=== PATIENT | female | born 1990 | race Caucasian/White ===

== ENCOUNTER 2018-04-14 02:02 | Inpatient (IN) | payer OTHER ==
[2018-04-14] MEDS ORDERED: Nalbuphine* 10 MG/ML 1 ML VIAL IM ONE (02:20)
[2018-04-14] MEDS ORDERED: Promethazine INJ(RESTRICTED)* 25 MG/ML 1 ML VIAL IM ONE (02:20)
[2018-04-14 06:51] LABS: ABS Basophils 0.1 10^3/ul (0-0.2); ABS Eosinophils 0.2 10^3/ul (0-0.6); ABS Monocytes 1.1 10^3/ul (0-0.8); ABS Neutrophils 12.1 10^3/ul (1.5-7.7); ABS Nucleated RBC 0 10^3/ul; Eosinophil % 1.3 %; Hematocrit 33 % (35-47); Hemoglobin 10.9 g/dl (12.0-16.0); Lymphocyte % 12.8 %; Mean Corpuscular HGB Conc 33 g/dl (31-36); Mean Corpuscular Hemoglobin 31 pg (27-31); Mean Corpuscular Volume 92 fL (80-97); Nucleated Red Blood Cells % 0.1; Platelet Count 248 10^3/ul (150-450); Red Blood Count 3.55 10^6/ul (4.00-5.40); Red Cell Distribution Width 14 % (10.5-15); White Blood Count 15.4 10^3/ul (3.5-10.8)
--- NOTE | 2018-04-14 07:44 | HP ---
General Information - Reason for Visit SROM, early labor - General Information Maternal Age: 28 Grav: 3 Para: 1 SAB: 1 IEA: 0 Estimated Due Date: 05/01/18 Determined By: LMP Maternal Blood Type and Rh: B Positive - Results this Serology/RPR Result: Non-Reactive Rubella Result: Immune HBsAg Result: Negative HIV Result: Negative GBS Culture Result: Negative Past Medical History Delivery History: Hx Uncomplicated Vaginal Delivery Pertinent Past Medical History: See Records - hypothyroidism, heart murmur, migraines, depression/anxiety Pertinent Past Surgical History: See Records - tonsilectomy/ adenoidectomy Pertinent Family History: See Records - thyroid, DM, CVD, high chol, HTN, stroke - Antepartal Records Antepartal Records: Reviewed, Complicated by: - thyroid, anemia, polyhydramnios Review of Systems Constitutional: Uncomfortable CV Complaint: No Respiratory: Shortness of Breath: No Gastrointestinal: No Nausea/Vomiting, Normal Bowel Movement Genitourinary: Leaking Fluid, No Dysuria, No Bleeding Musculoskeletal: Contractions Neurological: No Headache, No Visual Changes Movement: Normal Exam Allergies/Adverse Reactions: Allergies Iodine and Iodide Containing Produc Allergy (Severe, Verified 04/13/18 20:55) anaphylaxis shellfish derived Allergy (Severe, Verified 04/13/18 20:55) anaphylaxis prochlorperazine [From Compazine] Allergy (Verified 04/13/18 20:55) dystonia T: 98.1, P:108, R:18, BP: 124/74, O2:100 Lab Values - Entire Visit: Laboratory Tests 04/14/18 04/14/18 06:35 06:35 WBC 15.4 H RBC 3.55 L Hgb 10.9 L Hct 33 L MCV 92 MCH 31 MCHC 33 RDW 14 Plt Count 248 MPV 8.0 Neut % (Auto) 78.4 Lymph % (Auto) 12.8 [place] % (Auto) 7.1 Eos % (Auto) 1.3 Baso % (Auto) 0.4 Absolute Neuts (auto) 12.1 H Absolute Lymphs (auto) 2.0 Absolute Monos (auto) 1.1 H Absolute Eos (auto) 0.2 Absolute Basos (auto) 0.1 Absolute Nucleated RBC 0 Nucleated RBC % 0.1 Blood Type B Positive - Measurements Height: 5 ft 8 in Weight: 230 lb Weight in lbs: [phone] Body Mass Index (BMI): 34.9 Pre- Weight: 180 lb Weight Gained This : 50 lbs and 0 ozs - Exam Breast: Breast Exam Deferred CVA: No CVA Tenderness Extremities: No Edema Heart: Normal Rhythm/Heart Sounds HEENT: No Significant Findings Lungs: Clear Bilaterally Rectal: Rectal Exam Deferred Reflexes: DTR 2+ Thyroid: No Thyromegaly - Abdominal Exam Abdomen Exam: Fundal Height Consistent with Dates - Ultrasound/Biophysical Profile Ultrasound Status: Not Done Targeted Exam Findings Estimated Weight: 7lbs 7oz Cervical Exam: 4cm Effacement: 70% Station: -2 Presenting Part: Vertex Membrane Status: Leaking Amniotic Fluid Evaluation: Gross Rupture Bleeding/Discharge: Bloody Show EFM Findings - External Monitor Findings External Monitor Findings: Accelerations Present, No Pattern of Variable or Late Decelerations, Variability Moderate, Baseline Stable - 135 Contractions: Regular, Moderate, 45-90 Seconds Contraction Frequency: 3-5 Assessment/Plan - Assessment 28 y.o. , SROM, 37w 4d EGA, Cat I NST, early labor - Obstetrical Risk Factors Risk Factors Comment: polyhydramnios - Plan Plan: Admit - Anticipate Vaginal Delivery - Date/Time of Admission Date of Admission: 04/14/18 Time of Admission: 02:25
[2018-04-14] MEDS ORDERED: Buffered Lidocaine 1% SYRIN* 1 ML/SYRINGE INTRADERM ONE (07:48)
[2018-04-14] MEDS ORDERED: Lactated Ringers 1000 ML Bag* 1,000 ML IV ONE ×2 (07:48→16:30)
[2018-04-14] MEDS ORDERED: Lactated Ringers 1000 ML Bag* 1,000 ML IV SCH ×3 (08:00→21:00)
--- NOTE | 2018-04-14 13:16 | PN ---
Progress Note - Progress Note Date of Service: 04/14/18 SOAP: Subjective: [Pt reports contractions have stopped, reports con't LOF, +FM and denies VB. Pt desires augmentation.] Objective: [BP:114/61, P:82, R:18, T:98.7 FHT: 140 bpm, + accels, -decels, moderate variability, ctx irregular.] Assessment: [28 y.o. , [id number], early labor, SROM] Plan: [1) Pitocin augmentation, reviewed risks versus benefits and pt agrees to continue 2) Anticipate vaginal delivery]
[2018-04-14] MEDS ORDERED: Oxytocin in LR* 20 UNITS/1,000 ML BAG IVPB SCH (14:00)
[2018-04-14] MEDS ORDERED: OBEPIDURAL* 250 ML EPIDURAL ONE (15:45)
[2018-04-14] MEDS ORDERED: Phenylephrine IV* 40 MCG/ML 10 ML SYRINGE ONE (15:57)
[2018-04-14] MEDS ORDERED: Famotidine TAB* 20 MG PO PRN (16:30)
[2018-04-14] MEDS ORDERED: Sodium Citrate/Citric Acid* 15 ML UDC PO PRN (16:30)
[2018-04-14] MEDS ORDERED: EPHEDrine (Pressors)* 50 MG/ML VIAL IV PUSH PRN ×2 (16:30)
[2018-04-14] MEDS ORDERED: Phenylephrine IV* 40 MCG/ML 10 ML SYRINGE IV PUSH PRN ×2 (16:30)
[2018-04-14] MEDS ORDERED: OBEPIDURAL* 250 ML EPIDURAL SCH (17:00)
[2018-04-14] MEDS ORDERED: Lidocaine 2% VISCOUS* 15 ML UDC ONE (20:03)
[2018-04-14] MEDS ORDERED: Witch Hazel PAD* JAR TOPICAL PRN (20:22)
[2018-04-14] MEDS ORDERED: Dibucaine 1% 28.35 GM TUBE PR PRN (20:22)
[2018-04-14] MEDS ORDERED: Glycerin ADULT SUPP PR PRN (20:22)
--- NOTE | 2018-04-14 20:22 | PROCNOTE ---
[facility] OB: Delivery Note - Delivery A Date of : 04/14/18 Time of : 20:01 Sex: Female Score 1 Minute: 8 Score 5 Minutes: 9 Gestational Age in Weeks and Days at Delivery: 37 Weeks and 4 Days Delivery Method: Spontaneous Vaginal Labor: Spontaneous Estimated Blood Loss: 150 Anesthesia/Analgesia: IM/IV, CEI for Labor Delivered By: Coleen Ward - Nursery Level of Nursery: Regular/Bedside - Perineum Perineal Injury: Perineal Laceration, 1st Degree Perineal Repair: By Delivering Practioner - Events Delivery Events of Note: Pitocin During Labor, Manual Removal of Placenta
[2018-04-14] MEDS ORDERED: Simethicone TAB* 80 MG TAB.CHEW PO SCH (21:00)
[2018-04-14] MEDS: Ibuprofen TAB* 600 MG PO PRN (21:31)
[2018-04-14] MEDS ORDERED: Clindamycin 900 MG IVPREMIX(* 900 MG/50 ML SDV IV ONE (22:00)
[2018-04-15] MEDS: Ibuprofen TAB* 600 MG PO PRN ×4 (02:55→21:32)
[2018-04-15 06:38] LABS: ABS Basophils 0.1 10^3/ul (0-0.2); ABS Eosinophils 0.1 10^3/ul (0-0.6); ABS Lymphocytes 2.2 10^3/ul (1.0-4.8); ABS Monocytes 1.4 10^3/ul (0-0.8); ABS Neutrophils 13.9 10^3/ul (1.5-7.7); ABS Nucleated RBC 0 10^3/ul; Eosinophil % 0.8 %; Hematocrit 32 % (35-47); Hemoglobin 10.8 g/dl (12.0-16.0); Lymphocyte % 12.5 %; Mean Corpuscular HGB Conc 34 g/dl (31-36); Mean Corpuscular Hemoglobin 31 pg (27-31); Mean Corpuscular Volume 91 fL (80-97); Mean Platelet Volume 7.7 fL (7.4-10.4); Nucleated Red Blood Cells % 0; Platelet Count 249 10^3/ul (150-450); Red Blood Count 3.45 10^6/ul (4.00-5.40); Red Cell Distribution Width 14 % (10.5-15); White Blood Count 17.8 10^3/ul (3.5-10.8)
[2018-04-15] MEDS: Acetaminophen TAB* 325 MG PO PRN ×4 (07:32→22:52)
[2018-04-15] MEDS: Docusate CAP* 100 MG PO SCH ×4 (07:32→21:32)
[2018-04-15] MEDS ORDERED: Ferrous Gluconate TAB* 324 MG TAB PO SCH (09:00)
[2018-04-15] MEDS: Benzocaine/Menthol LOZ* 1 LOZENGE PO PRN ×4 (09:30→21:32)
[2018-04-15] MEDS: guaiFENesin ER TAB 600 MG PO PRN ×2 (09:30→21:32)
[2018-04-16] MEDS: Ibuprofen TAB* 600 MG PO PRN ×2 (04:11→11:47)
[2018-04-16] MEDS: Docusate CAP* 100 MG PO SCH ×2 (08:54→16:06)
[2018-04-16] MEDS: Acetaminophen TAB* 325 MG PO PRN ×2 (08:54→16:05)
[2018-04-16 09:33] VITALS: BP 114/60
--- NOTE | 2018-04-16 10:24 | PTEDU ---
Patient Name: OANH WEEKS OANH WEEKS selected video: Follow Me Mum: The [facility] to Successful to view on 04/16/19 19 at 10:23:58 AM [id number]
[2018-04-16] MEDS: guaiFENesin ER TAB 600 MG PO PRN (11:48)
== END 2018-04-16 18:30 | disposition home or self-care (01) | DRG 560 ==
LOC: MCHOBOUT 02:02 → MCHOB 02:29
PROVIDERS: ADMIT Midwife; ATTEND Midwife
PROC: 10E0XZZ Delivery of Products of Conception, External Approach (ICD-10-PCS; principal; 2018-04-14)
PROC: 0HQ9XZZ Repair Perineum Skin, External Approach (ICD-10-PCS; 2018-04-14)
DX: O60.23X1 Term delivery with preterm labor, third trimester, fetus 1 (principal); Z37.0 Single live birth; O70.0 First degree perineal laceration during delivery; O99.284 Endocrine, nutritional and metabolic diseases complicating childbirth; E03.9 Hypothyroidism, unspecified; Z3A.37 37 weeks gestation of pregnancy
CPT/HCPCS: 36415; 85025; 86850; 86900; 86901; A9270-GY; J2300; J2550

== ENCOUNTER 2021-07-28 03:53 | Inpatient (IN) ==
[2021-07-28] MEDS ORDERED: Lactated Ringers 1000 ml BAG 1,000 ML IV ONE ×2 (04:49→17:12)
[2021-07-28] MEDS ORDERED: Buffered Lidocaine 1% SYRIN 1 ml INTRADERM ONE (04:49)
[2021-07-28] MEDS ORDERED: Lactated Ringers 1000 ml BAG 1,000 ML IV SCH ×3 (05:00→18:00)
[2021-07-28 06:17] LABS: Urine Benzodiazepine Screen None Detected (None Detect); Urine Cannabinoids Screen None Detected (None Detect); Urine Opiates Screen None Detected (None Detect)
[2021-07-28 08:24] LABS: Hematocrit 33 % (35-47); Hemoglobin 11.3 g/dL (12.0-16.0); Mean Corpuscular HGB Conc 34 g/dL (31-36); Mean Corpuscular Hemoglobin 32 pg (27-31); Mean Corpuscular Volume 93 fL (80-97); Mean Platelet Volume 7.8 fL (7.4-10.4); Platelet Count 260 10^3/uL (150-450); Red Blood Count 3.59 10^6 /uL (3.70-4.87); Red Cell Distribution Width 14 % (10-15); White Blood Count 14.6 10^3/uL (3.5-10.8)
[2021-07-28] MEDS ORDERED: Oxytocin in LR 20 UNITS/1,000 ML BAG IVPB ONE (11:35)
[2021-07-28] MEDS ORDERED: Oxytocin in LR 20 UNITS/1,000 ML BAG IVPB SCH ×2 (12:00→18:00)
[2021-07-28] MEDS ORDERED: OBEPIDURAL (200 ML) 200 ML EPIDURAL ONE (16:19)
[2021-07-28] MEDS ORDERED: EPHEDrine (Pressors) 50 MG/ML VIAL IV PUSH PRN ×2 (17:12)
[2021-07-28] MEDS ORDERED: Sodium Citrate/Citric Acid LIQ 15 ML UDC PO PRN (17:12)
[2021-07-28] MEDS ORDERED: Phenylephrine 40 mcg/mL 10mL (400mcg) SYRINGE IV PUSH PRN ×2 (17:12)
[2021-07-28] MEDS ORDERED: Witch Hazel PAD JAR TOPICAL PRN (17:55)
[2021-07-28] MEDS ORDERED: Dibucaine 1% OINT 28.35 GM TUBE PR PRN (17:55)
[2021-07-28] MEDS ORDERED: OBEPIDURAL (200 ML) 200 ML EPIDURAL SCH (18:00)
[2021-07-28 18:19] LABS: Urine Appearance Clear; Urine Bilirubin Negative (Negative); Urine Blood 2+ (Negative); Urine Color Yellow; Urine Glucose 1+(50 mg/dL) (Negative); Urine Ketones Negative (Negative); Urine Nitrite Negative (Negative); Urine Protein Negative (Negative); Urine Specific Gravity 1.006 (1.002-1.030); Urine Urobilinogen Negative (Negative)
[2021-07-28 18:28] LABS: Urine Bacteria 1+ (Absent); Urine Red Blood Cell 2+(6-10/hpf) (Absent); Urine Squamous Epithelial Cell Present (Absent); Urine White Blood Cell Trace(0-5/hpf) (Absent)
[2021-07-29 07:33] LABS: ABS Basophils 0.1 10^3/ul (0-0.2); ABS Eosinophils 0.2 10^3/ul (0-0.6); ABS Lymphocytes 2.6 10^3/ul (1.0-4.8); ABS Monocytes 1.1 10^3/ul (0-0.8); ABS Neutrophils 10.7 10^3/ul (1.5-7.7); Eosinophil % 1.1 %; Hematocrit 31 % (35-47); Hemoglobin 10.4 g/dL (12.0-16.0); Lymphocyte % 17.6 %; Mean Corpuscular HGB Conc 34 g/dL (31-36); Mean Corpuscular Hemoglobin 31 pg (27-31); Mean Corpuscular Volume 93 fL (80-97); Mean Platelet Volume 7.8 fL (7.4-10.4); Platelet Count 219 10^3/uL (150-450); Red Blood Count 3.33 10^6 /uL (3.70-4.87); Red Cell Distribution Width 13 % (10-15); White Blood Count 14.6 10^3/uL (3.5-10.8)
[2021-07-29 15:54] VITALS: BP 110/64
== END 2021-07-29 18:45 | disposition home or self-care (01) | DRG 560 ==
LOC: MCHOBOUT 03:53 → MCHOB 04:56
PROVIDERS: ADMIT Midwife; ATTEND Advanced Practice Midwife